=== PATIENT | female | born 1975 | race Caucasian/White ===

== ENCOUNTER 2022-12-19 10:38 | Outpatient (CLI) | payer OTHER, SELFPAY | END 2022-12-19 10:39 | disposition home or self-care (01) | PROVIDERS: PCP Family Medicine; Visit Provider Physician Assistant | DX: Z01.419 Encounter for gynecological examination (general) (routine) without abnormal findings (principal); E66.9 Obesity, unspecified; R23.2 Flushing; Z13.6 Encounter for screening for cardiovascular disorders; Z13.1 Encounter for screening for diabetes mellitus; Z13.29 Encounter for screening for other suspected endocrine disorder | CPT/HCPCS: 80061; 82947; 83001; 84443 ==

== ENCOUNTER 2022-12-31 09:19 | Outpatient (CLI) | payer OTHER, SELFPAY ==
--- NOTE | 2022-12-31 09:45 | CRLHL7_ITS ---
For Patients: As a result of the Century Cures Act, medical imaging exams and procedure reports are released immediately into your electronic medical record. You may view this report before your referring provider. If you have questions, please contact your health care provider. DIGITAL DIAGNOSTIC BILATERAL MAMMOGRAM USING TOMOSYNTHESIS AND COMPUTER-AIDED DETECTION CLINICAL HISTORY: BILATERAL breast lumps. COMPARISON: 02/13/2018, 11/14/2016. TECHNIQUE: Digital RIGHT mammogram in four projections. Tomosynthesis and CAD utilized. BREAST COMPOSITION: There are areas of scattered fibroglandular density. FINDINGS: 3D CC/MLO BILATERAL mammogram images submitted. No suspicious masses or architectural distortion. Benign calcifications noted bilaterally. Normal axillary lymph nodes. IMPRESSION: Normal BILATERAL mammograms. No evidence of malignancy. RECOMMENDATIONS: Annual BILATERAL screening mammography. Results and recommendations discussed with the patient. BI-RADS Category 2: Benign A lay language report of this examination will be provided to the patient. Dictated by George Eldridge MD @ 12/31/2022 11:08:27 AM jj/Dictated by: George Eldridge MD @ 12/31/2022 11:08:00 AM (Electronically Signed)
== END 2022-12-31 09:20 | disposition home or self-care (01) ==
LOC: MAMMO 09:20
PROVIDERS: PCP Family Medicine; Visit Provider Physician Assistant
DX: N63.10 Unspecified lump in the right breast, unspecified quadrant (principal); N63.20 Unspecified lump in the left breast, unspecified quadrant
CPT/HCPCS: 77066; G0279

== ENCOUNTER 2023-02-27 09:40 | Outpatient (CLI) | payer OTHER, SELFPAY | END 2023-02-27 09:41 | disposition home or self-care (01) | LOC: NFLDREF 03-03 13:11 | PROVIDERS: PCP Family Medicine; Referring Provider Family Medicine; Visit Provider Dermatology | DX: L98.9 Disorder of the skin and subcutaneous tissue, unspecified (principal); L40.9 Psoriasis, unspecified; Z79.631 Long term (current) use of antimetabolite agent | CPT/HCPCS: 80076 ==

== ENCOUNTER 2023-03-27 11:40 | Outpatient (CLI) | payer OTHER, SELFPAY | END 2023-03-27 11:41 | disposition home or self-care (01) | LOC: NFLDREF 03-30 16:57 | PROVIDERS: PCP Family Medicine; Referring Provider Family Medicine; Visit Provider Dermatology | DX: L40.9 Psoriasis, unspecified (principal); Z79.631 Long term (current) use of antimetabolite agent | CPT/HCPCS: 80048; 80076; 86480 ==

== ENCOUNTER 2025-04-13 09:08 | Outpatient (CLI) | payer OTHER, SELFPAY | END 2025-04-13 09:09 | disposition home or self-care (01) | LOC: NFLDREF 09:10 | PROVIDERS: PCP Family Medicine; Visit Provider Obstetrics & Gynecology | DX: N39.0 Urinary tract infection, site not specified (principal) | CPT/HCPCS: 87086 ==

== ENCOUNTER 2025-04-21 10:19 | Outpatient (CLI) | payer OTHER, SELFPAY ==
[2025-04-24 05:17] LABS: HPV Source Cervix
[2025-04-27 10:16] LABS: Pap Test Digital Imaging Done; Pap Test Reviewed by Pathologi Done
== END 2025-04-21 10:20 | disposition home or self-care (01) ==
PROVIDERS: PCP Family Medicine; Visit Provider Physician Assistant
DX: Z12.4 Encounter for screening for malignant neoplasm of cervix (principal); Z00.00 Encounter for general adult medical examination without abnormal findings
CPT/HCPCS: 80061; 87624; 87625; 88141; 88142; 88175

== ENCOUNTER 2025-05-19 12:28 | Outpatient (CLI) | payer OTHER, SELFPAY ==
--- NOTE | 2025-05-19 13:57 | W.ANESCHARGE ---
Anesthesia Charges Start Date/Time Anesthesia Start Date: 05/19/25 Anesthesia Start Time: 13:25 Stop Date/Time Anesthesia Stop Date: 05/19/25 Anesthesia Stop Time: 14:02
--- NOTE | 2025-05-19 14:01 | P.ANES_ITS ---
Anesthesia Charges Start Date/Time Anesthesia Start Date: 05/19/25 Anesthesia Start Time: 13:25 Stop Date/Time Anesthesia Stop Date: 05/19/25 Anesthesia Stop Time: 14:02 Coding CPT Codes CPT Codes: MAX LWR INTST NDSC NOS - 21802 ([id number]) P2 - PATIENT W/MILD SYST DISEASE, QK - HEAD BONE GRINDER 2-4 CNCRNT ANES PROC, QX - STAFFING ASSISTANT SVC W/ MD MED DIRECTION
--- NOTE | 2025-05-19 14:01 | W.ANESCHARGE ---
Anesthesia Charges Start Date/Time Anesthesia Start Date: 05/19/25 Anesthesia Start Time: 13:25 Stop Date/Time Anesthesia Stop Date: 05/19/25 Anesthesia Stop Time: 14:02 Coding CPT Codes CPT Codes: MAX LWR INTST NDSC NOS - 67722 ([id number]) P2 - PATIENT W/MILD SYST DISEASE, QK - DYEING MACHINE BACK TENDER 2-4 CNCRNT ANES PROC, QX - DATA WAREHOUSING SPECIALIST SVC W/ MD MED DIRECTION
--- NOTE | 2025-05-19 14:08 | P.ANES_ITS ---
Anesthesia Charges Start Date/Time Anesthesia Start Date: 05/19/25 Anesthesia Start Time: 13:25 Stop Date/Time Anesthesia Stop Date: 05/19/25 Anesthesia Stop Time: 14:02 Coding CPT Codes CPT Codes: MAX LWR INTST NDSC NOS - [id number] ([id number]) P2 - PATIENT W/MILD SYST DISEASE, QK - RUG DRYING MACHINE OPERATOR 2-4 CNCRNT ANES PROC, QX - UTILITY SUPERVISOR [employer] SVC W/ MD MED DIRECTION
--- NOTE | 2025-05-19 14:08 | W.ANESCHARGE ---
Anesthesia Charges Start Date/Time Anesthesia Start Date: 05/19/25 Anesthesia Start Time: 13:25 Stop Date/Time Anesthesia Stop Date: 05/19/25 Anesthesia Stop Time: 14:02 Coding CPT Codes CPT Codes: MAX LWR INTST NDSC NOS - 26769 ([id number]) P2 - PATIENT W/MILD SYST DISEASE, QK - EAR MOLD LABORATORY TECHNICIAN 2-4 CNCRNT ANES PROC, QX - PUBLIC FINANCE SPECIALIST SVC W/ MD MED DIRECTION
== END 2025-05-19 12:29 | disposition home or self-care (01) ==
LOC: OP CLINIC 12:31
PROVIDERS: PCP Family Medicine; Visit Provider Surgery
DX: Z12.11 Encounter for screening for malignant neoplasm of colon (principal)
CPT/HCPCS: 00811; 00812; 45378; J2704

== ENCOUNTER 2025-05-30 10:15 | Outpatient (CLI) | payer OTHER, SELFPAY | END 2025-05-30 10:16 | disposition home or self-care (01) | LOC: LKVREF 10:17 | PROVIDERS: PCP Family Medicine; Visit Provider Physician Assistant | DX: R68.82 Decreased libido (principal) | CPT/HCPCS: 84403 ==